=== PATIENT | female | born 1945 | race Hispanic/Latino ===

== ENCOUNTER 2020-02-28 17:14 | Emergency (ER) | payer MEDICARE ==
[~2020-02-28] VITALS: Ht 165.1 cm; Wt 70.3 kg
[2020-02-28] MEDS ORDERED: HYDROCODONE/APAP 7.5MG-325MG 1 EA TAB PO ONE (17:30)
[2020-02-28] MEDS ORDERED: ONDANSETRON HCL INJ 2MG/ML 2ML 2 MG/ML VIAL IV NR (18:01)
[2020-02-28] MEDS ORDERED: MORPHINE SULFATE INJ 2 MG/ML SYR IV NR (18:01)
[2020-02-28] MEDS ORDERED: FENTANYL CITRATE/PF 100MCG/2 ML INJ IV ONE (19:15)
[2020-02-28] MEDS ORDERED: MIDAZOLAM HCL 2 MG/2 ML VIAL IV NR (19:15)
[2020-02-28] MEDS ORDERED: SODIUM CHLORIDE 0.9% 1000ML 1,000 ML ONE (19:23)
[2020-02-28] MEDS ORDERED: ULTRAM50 MG PO (19:44)
[2020-02-28 20:32] VITALS: BP 126/44
== END 2020-02-28 20:35 | disposition home or self-care (01) ==
LOC: ER 17:21
DX: S43.015A Anterior dislocation of left humerus, initial encounter (principal); S43.034A Inferior dislocation of right humerus, initial encounter; E03.9 Hypothyroidism, unspecified; W01.198A Fall on same level from slipping, tripping and stumbling with subsequent striking against other object, initial encounter
CPT/HCPCS: 23650; 73020; 73030; 73060; 99284; J2250; J2270; J2405; J3010; J7030